=== PATIENT | female | born 1970 | race Caucasian/White ===

== ENCOUNTER 2018-12-05 13:22 | Emergency (ER) | payer MEDICAID ==
[~2018-12-05] VITALS: Ht 167.6 cm; Wt 66.2 kg
[2018-12-05 13:23] VITALS: BP 103/65
--- NOTE | 2018-12-05 13:34 | NUR ---
PT HERE FOR PAIN IN RIGHT EAR THAT HAS BEEN PRESENT 4 DAYS. STATES SHE WAS SICK EARLIER THIS MONTH. HAS NOT BEEN ON ANY ABX. DENIES PAST MEDICAL HX. WORRIED THERE MIGHT BE FLUID IN EAR. CURRENTLY S[facility]ING ON [employer] [place].
== END 2018-12-05 14:05 | disposition home or self-care (01) ==
LOC: ED 13:54
DX: H65.01 Acute serous otitis media, right ear (principal); Z90.49 Acquired absence of other specified parts of digestive tract; Z90.710 Acquired absence of both cervix and uterus
CPT/HCPCS: 99283

== ENCOUNTER 2020-07-16 23:08 | Emergency (ER) | payer MEDICAID ==
[~2020-07-16] VITALS: Ht 167.6 cm; Wt 76.0 kg
[2020-07-17] MEDS ORDERED: KETOROLAC 30 MG/1 ML IM ONE (01:00)
[2020-07-17] MEDS ORDERED: KETOROLAC 30 MG/1 ML ONE (01:23)
[2020-07-17 01:29] VITALS: BP 118/68
== END 2020-07-17 01:31 | disposition home or self-care (01) ==
LOC: ED 07-17 01:25
DX: S90.32XA Contusion of left foot, initial encounter (principal); Z90.89 Acquired absence of other organs; Z90.710 Acquired absence of both cervix and uterus; Y99.8 Other external cause status; W20.8XXA Other cause of strike by thrown, projected or falling object, initial encounter; Y92.009 Unspecified place in unspecified non-institutional (private) residence as the place of occurrence of the external cause; Y93.89 Activity, other specified
CPT/HCPCS: 73630; 96372; 99283; J1885